=== PATIENT | female | born 1940 | race American Indian/Alaskan Native ===

== ENCOUNTER 2017-04-21 10:45 | Outpatient (CLI) | payer MEDICARE ==
--- NOTE | 2017-04-21 15:55 | Ultrasound Report ---
Renal ultrasound: Stage III chronic renal disease. There is right pleural fluid. The right renal length is 9.9 cm. The kidney is not optimally studied however there is no evidence of a renal mass or hydronephrosis. The echo pattern is grossly normal. The length of the left kidney is approximately 9 cm. In the superior kidney there is a 1 cm echolucent mass consistent with cysts. The echo pattern of the kidney is not otherwise remarkable. Transverse images of the urinary bladder are grossly normal. Impressions: Small left renal cyst. No renal pathology otherwise identified.
== END 2017-04-21 10:46 | disposition home or self-care (01) ==
LOC: US 10:45
PROVIDERS: ATTEND Specialist
DX: I12.9 Hypertensive chronic kidney disease with stage 1 through stage 4 chronic kidney disease, or unspecified chronic kidney disease (principal); N18.3 Chronic kidney disease, stage 3 (moderate); N28.1 Cyst of kidney, acquired; N28.89 Other specified disorders of kidney and ureter
CPT/HCPCS: 76770